=== PATIENT | female | born 1975 | race Caucasian/White ===

== ENCOUNTER 2018-06-27 07:58 | Emergency (ER) | payer BC ==
[2018-06-27 08:02] VITALS: BMI 27.9
[2018-06-27] MEDS ORDERED: Morphine 4 MG/ML VIAL IV STA (09:02)
[2018-06-27] MEDS ORDERED: Sodium Chloride 0.9% 1,000 ML IV STA (09:02)
--- NOTE | 2018-06-27 09:15 | ED PDOC ---
HPI: Abdomen Time Seen by Provider: 06/27/18 08:29 Chief Complaint (Nursing): Abdominal Pain Chief Complaint (Provider): Abdominal Pain History Per: Patient History/Exam Limitations: no limitations Onset/Duration Of Symptoms: Days (x2) Current Symptoms Are (Timing): Constant Location Of Pain/Discomfort: Diffuse Associated Symptoms: Nausea, Vomiting, Diarrhea Additional Complaint(s): 42 year old female with a past medical history of diverticulitis who is presenting to the ED for evaluation of constant abdominal pain associated with nausea, vomiting, and diarrhea onset 2 days ago. She offers no other medical complaints at this time. PMD: none provided Past Medical History Reviewed: Historical Data, Nursing Documentation, Vital Signs Vital Signs: Last Vital Signs Temp 98.8 F 06/27/18 09:02 Pulse 91 H 06/27/18 09:02 Resp 18 06/27/18 08:02 BP 120/71 06/27/18 08:02 Pulse Ox 96 06/27/18 08:02 - Medical History PMH: Diverticulitis - Surgical History Surgical History: No Surg Hx - Family History Family History: States: Unknown Family Hx - Social History Current smoker - smoking cessation education provided: No Alcohol: None Drugs: Denies - Home Medications Home Medications: Ambulatory Orders Medication Instructions Recorded Ciprofloxacin HCl [Cipro] 500 mg PO BID #20 tab 10/10/14 Metronidazole [Flagyl] 500 mg PO TID #30 tab 10/10/14 Oxycodone HCl/Acetaminophen 1 tab PO Q6 PRN #15 tab 10/10/14 [Percocet 325 mg-5 mg] Acetaminophen with Codeine 1 tab PO Q6H PRN #10 tab 06/27/18 [Tylenol with Codeine No. 3 300 mg-30 mg] Ciprofloxacin [Cipro] 500 mg PO BID #19 tab 06/27/18 metroNIDAZOLE [Flagyl] 500 mg PO TID #29 tab 06/27/18 - Allergies Allergies/Adverse Reactions: Allergies Allergy/AdvReac Type Severity Reaction Status Date / Time No Known Allergies Allergy Verified 06/27/18 08:24 Review of Systems ROS Statement: Except As Marked, All Systems Reviewed And Found Negative Gastrointestinal: Positive for: Nausea, Vomiting, Abdominal Pain, Diarrhea Physical Exam - Reviewed Nursing Documentation Reviewed: Yes Vital Signs Reviewed: Yes - Physical Exam Appears: Positive for: Non-toxic, In Acute Distress (moderate painful ) Head Exam: Positive for: ATRAUMATIC, NORMAL INSPECTION, NORMOCEPHALIC Skin: Positive for: Normal Color, Warm, DRY Eye Exam: Positive for: EOMI, Normal appearance, PERRL ENT: Positive for: Normal ENT Inspection Neck: Positive for: Normal, Painless ROM Cardiovascular/Chest: Positive for: Regular Rate, Rhythm. Negative for: Murmur Respiratory: Positive for: Normal Breath Sounds. Negative for: Respiratory Distress Gastrointestinal/Abdominal: Positive for: Soft, Tenderness (generalized diffuse tenderness, more localized to epigastrium). Negative for: Mass, Distended, Guarding, Rebound Back: Positive for: Normal Inspection. Negative for: L CVA Tenderness, R CVA Tenderness, Vertebral Tenderness Extremity: Positive for: Normal ROM. Negative for: Deformity, Swelling Neurologic/Psych: Positive for: Alert, Oriented. Negative for: Motor/Sensory Deficits - Laboratory Results Result Diagrams: 06/27/18 09:14 06/27/18 09:14 - ECG O2 Sat by Pulse Oximetry: 96 (RA) Pulse Ox Interpretation: Normal Medical Decision Making Medical Decision Making: Time: 9:06 Plan: --EKG --CMP --Lipase --ED Urine Dipstick --ED Urine --CBC --Coags --Morphine 2 mg IV --IV Fluids --Zofran 4 mg IV --Urinalysis Accession No. : [id number] Patient Name / ID : ESTEVAN CORTES / [id number] Exam Date : 06/27/2018 09:51:01 ( Approved ) Study Comment : Sex / Age : F / 42Y Creator : Eliud Campos MD Dictator : Eliud Campos MD Tumbler Plater : Gas Well Pumper : Eliud Campos MD Approver2 : Report Date : 06/27/2018 10:27:47 My Comment : Date of service: 06/27/2018 PROCEDURE: CT Abdomen and Pelvis with contrast HISTORY: Gen abd pain, h/o diverticulitis COMPARISON: CT scan of the abdomen and pelvis dated 10/10/2014. TECHNIQUE: Contrast dose: 95 mL Omnipaque 300 Radiation dose: Total exam DLP = 360.9 mGy-cm. This CT exam was performed using one or more of the following dose reduction techniques: Automated exposure control, adjustment of the mA and/or kV according to patient size, and/or use of iterative reconstruction technique. FINDINGS: LOWER THORAX: Unremarkable. LIVER: Unremarkable. No gross lesion or ductal dilatation. GALLBLADDER AND BILE DUCTS: Unremarkable. PANCREAS: Unremarkable. No gross lesion or ductal dilatation. SPLEEN: Unremarkable. ADRENALS: Unremarkable. No mass. KIDNEYS AND URETERS: Unremarkable. No hydronephrosis. No solid mass. VASCULATURE: Unremarkable. No aortic aneurysm. No aortic atherosclerotic calcification or mural plaque present. BOWEL: Extensive colonic diverticulosis with severe thickening and pericolic inflammatory change surrounding the mid transverse colon. No obstruction. No gross mural thickening. APPENDIX: Normal appendix. PERITONEUM: Unremarkable. No free fluid. No free air. LYMPH NODES: Unremarkable. No enlarged lymph nodes. BLADDER: Unremarkable. REPRODUCTIVE: Multiple uterine fibroids. Cervical nabothian cyst. Large 13.8 x 7.4 cm adnexal cyst. BONES: L4-5 disc herniation. No acute fracture. OTHER FINDINGS: None. IMPRESSION: Acute uncomplicated transverse diverticulitis. Large 13.8 cm adnexal cyst. Difficult to determine whether it arises from the right or left, but likely arises from the left. Multi fibroid uterus. L4-5 disc herniation. Additional stable findings as above. Scribe Attestation: Documented by Joy Norman, acting as a scribe for Ashleigh Mehta MD. Provider Scribe Attestation: All medical record entries made by the Scribe were at my direction and personally dictated by me. I have reviewed the chart and agree that the record accurately reflects my personal performance of the history, physical exam, medical decision making, and the department course for this patient. I have also personally directed, reviewed, and agree with the discharge instructions and disposition. Disposition - Clinical Impression Clinical Impression: Acute diverticulitis - Disposition Referrals: Josh Vazquez [Outside] Khai Lindquist MD, PhD [Staff Provider] - Disposition: Routine/Home Disposition Time: 15:22 Condition: IMPROVED Prescriptions: Acetaminophen with Codeine [Tylenol with Codeine No. 3 300 mg-30 mg] 1 tab PO Q6H PRN #10 tab PRN Reason: Pain, Severe (8-10) Ciprofloxacin [Cipro] 500 mg PO BID #19 tab metroNIDAZOLE [Flagyl] 500 mg PO TID #29 tab Instructions: Diverticulitis Forms: Josh York ([place]ux[place]ish), [facility] ED School/Work Excuse Print Language: JAPANESE
[2018-06-27] MEDS ORDERED: Morphine 4 MG/ML VIAL ONE (09:22)
[2018-06-27 09:25] LABS: BASO # 0.1 K/uL (0.0-0.2); BASO % 0.5 % (0.0-2.0); EOS % 0.2 % (0.0-4.0); HEMOGLOBIN 12.8 g/dL (12.0-16.0); LYMPH # 1.3 K/uL (1.0-4.3); LYMPH % 11.8 % (20.0-40.0); MEAN CELL VOLUME 89.5 fl (81.0-99.0); MEAN CORPUSCULAR HEMOGLOBIN 29.6 pg (27.0-31.0); MEAN CORPUSCULAR HGB CONC 33.1 g/dL (33.0-37.0); MEAN PLATELET VOLUME 7.5 fl (7.2-11.7); MONO # 0.9 K/uL (0.0-0.8); MONO % 8.4 % (0.0-10.0); NEUT # 8.8 K/uL (1.8-7.0); NEUT % 79.1 % (50.0-75.0); NRBC % 0.2 % (0.0-0.0); RBC 4.31 Mil/uL (3.80-5.20); RED CELL DISTRIBUTION WIDTH 12.9 % (11.5-14.5); WHITE BLOOD COUNT 11.1 K/uL (4.8-10.8)
[2018-06-27 09:29] LABS: URINE BACTERIA RARE (<OCC); URINE BILIRUBIN NEGATIVE (NEGATIVE); URINE BLOOD MODERATE (NEGATIVE); URINE CLARITY CLEAR (Clear); URINE COLOR STRAW (YELLOW); URINE GLUCOSE (UA) NEG (NEGATIVE); URINE LEUKOCYTE ESTERASE NEG Leu/uL (Negative); URINE PROTEIN 30 mg/dL (NEGATIVE); URINE UROBILINOGEN 0.2-1.0 mg/dL (0.2-1.0)
[2018-06-27 09:30] LABS: INR 1.2; PROTHROMBIN TIME 13.7 Seconds (9.8-13.1)
[2018-06-27 09:33] LABS: PARTIAL THROMBOPLASTIN TIME 31.5 Seconds (25.6-37.1)
[2018-06-27 09:34] LABS: ALB/GLOB RATIO 1.2 (1.0-2.1); ALBUMIN 4.3 g/dL (3.5-5.0); ALT/SGPT 31 U/L (9-52); AST/SGOT 25 U/L (14-36); BLOOD UREA NITROGEN 7 mg/dl (7-17); CALCIUM 9.1 mg/dL (8.4-10.2); GFR NON-AFRICAN AMERICAN > 60; LIPASE 15 U/L (23-300)
[2018-06-27] MEDS ORDERED: Sodium Chloride 0.9% 50 ML IV ONE (09:44)
[2018-06-27] MEDS ORDERED: Iohexol 300 100 ML IJ ONE (09:44)
[2018-06-27] MEDS ORDERED: Potassium Chloride 20 mEq ER Tab PO STA (09:55)
[2018-06-27] MEDS ORDERED: Potassium Chloride 20 mEq ER Tab PO ONE (10:21)
--- NOTE | 2018-06-27 10:31 | CT ---
Date of service: 06/27/2018 PROCEDURE: CT Abdomen and Pelvis with contrast HISTORY: Gen abd pain, h/o diverticulitis COMPARISON: CT scan of the abdomen and pelvis dated 10/10/2014. TECHNIQUE: Contrast dose: 95 mL Omnipaque 300 Radiation dose: Total exam DLP = 360.9 mGy-cm. This CT exam was performed using one or more of the following dose reduction techniques: Automated exposure control, adjustment of the mA and/or kV according to patient size, and/or use of iterative reconstruction technique. FINDINGS: LOWER THORAX: Unremarkable. LIVER: Unremarkable. No gross lesion or ductal dilatation. GALLBLADDER AND BILE DUCTS: Unremarkable. PANCREAS: Unremarkable. No gross lesion or ductal dilatation. SPLEEN: Unremarkable. ADRENALS: Unremarkable. No mass. KIDNEYS AND URETERS: Unremarkable. No hydronephrosis. No solid mass. VASCULATURE: Unremarkable. No aortic aneurysm. No aortic atherosclerotic calcification or mural plaque present. BOWEL: Extensive colonic diverticulosis with severe thickening and pericolic inflammatory change surrounding the mid transverse colon. No obstruction. No gross mural thickening. APPENDIX: Normal appendix. PERITONEUM: Unremarkable. No free fluid. No free air. LYMPH NODES: Unremarkable. No enlarged lymph nodes. BLADDER: Unremarkable. REPRODUCTIVE: Multiple uterine fibroids. Cervical nabothian cyst. Large 13.8 x 7.4 cm adnexal cyst. BONES: L4-5 disc herniation. No acute fracture. OTHER FINDINGS: None. IMPRESSION: Acute uncomplicated transverse diverticulitis. Large 13.8 cm adnexal cyst. Difficult to determine whether it arises from the right or left, but likely arises from the left. Multi fibroid uterus. L4-5 disc herniation. Additional stable findings as above.
--- NOTE | 2018-06-27 12:09 | CARD ---
APPROVED REPORT Date of service: 06/27/2018 EKG Measurement Heart [id number] <Conclusion> Normal sinus rhythm Rightward axis Borderline ECG
[2018-06-27] MEDS ORDERED: metroNIDAZOLE 500mg/100ml NS 100 ML IV STA (13:50)
[2018-06-27] MEDS ORDERED: Ciprofloxacin 400mg/200ml D5W 400 MG/200 ML BAG IV STA (13:50)
[2018-06-27] MEDS ORDERED: Ciprofloxacin 400mg/200ml D5W 400 MG/200 ML BAG IVPB ONE (15:31)
[2018-06-27] MEDS ORDERED: metroNIDAZOLE 500mg/100ml NS 100 ML IVPB ONE (15:31)
[2018-06-27 15:38] VITALS: TEMP 98.1
[2018-06-27 18:49] VITALS: BP 125/80; PULSE 75; RESP 16
[2018-07-02 10:02] VITALS: O2SAT 96
== END 2018-06-27 19:05 | disposition home or self-care (01) ==
LOC: H.ER 07:58
DX: K57.92 Diverticulitis of intestine, part unspecified, without perforation or abscess without bleeding (principal); M51.26 Other intervertebral disc displacement, lumbar region
CPT/HCPCS: 74177; 80053; 81003; 81025; 83690; 85025; 85610; 85730; 93005; 96361; 96365; 96367; 96375; 99285; J0744; J2270; J2405; J7030; Q9967